=== PATIENT | female | born 1970 | race Caucasian/White ===

== ENCOUNTER 2021-10-25 13:42 | Emergency (ER) | payer MEDICAID ==
[~2021-10-25] VITALS: Ht 160 cm; Wt 66.0 kg
[2021-10-25] MEDS ORDERED: ACETAMINOPHEN 325MG TABLET PO ONE (17:00)
[2021-10-25] MEDS ORDERED: IBUP-2028 MT (19:45)
[2021-10-25 20:27] VITALS: BP 103/57
== END 2021-10-25 20:28 | disposition home or self-care (01) ==
LOC: ER 14:49
DX: J02.9 Acute pharyngitis, unspecified (principal); B34.9 Viral infection, unspecified; R05.9 Cough, unspecified
CPT/HCPCS: 87070; 87430; 99283